=== PATIENT | male | born 1980 | race Two or more races ===

== ENCOUNTER 2018-01-08 16:39 | Emergency (ER) | payer OTHER ==
[~2018-01-08] VITALS: Ht 188 cm; Wt 100.0 kg
[2018-01-08] MEDS ORDERED: AMOX250S7 PO (16:43)
[2018-01-08 17:48] VITALS: BP 122/74
[2018-01-08] MEDS ORDERED: HydrOXYzine PAMOATE 25 MG CAPSULE PO ONE (18:00)
== END 2018-01-08 18:07 | disposition home or self-care (01) ==
LOC: EMS 16:40
DX: F41.9 Anxiety disorder, unspecified (principal); F17.210 Nicotine dependence, cigarettes, uncomplicated; Z79.899 Other long term (current) drug therapy
CPT/HCPCS: 99283